=== PATIENT | male | born 1995 | race Asian ===

== ENCOUNTER 2017-10-07 14:12 | Inpatient (IN) | payer OTHER ==
[2017-10-07 15:23] LABS: Hematocrit 46 % (42-52); Hemoglobin 15.4 g/dl (14.0-18.0); Mean Corpuscular HGB Conc 34 g/dl (31-36); Mean Corpuscular Hemoglobin 28 pg (27-31); Mean Corpuscular Volume 84 fL (80-94); Mean Platelet Volume 8.9 um3 (7.4-10.4); Platelet Count 245 10^3/ul (150-450); Red Blood Count 5.44 10^6/ul (4.0-5.4); Red Cell Distribution Width 13 % (10.5-15); White Blood Count 17.1 10^3/ul (3.5-10.8)
[2017-10-07 15:33] LABS: INR 1.06 (0.77-1.02)
[2017-10-07 15:39] LABS: EGFR Non-African American 109.3 (>60)
[2017-10-07] MEDS ORDERED: Sulfamethox/Trimethoprim DS 800/160* TAB PO ONE (15:40)
[2017-10-07] MEDS ORDERED: Cephalexin CAP* 500 MG PO ONE (15:40)
[2017-10-07] MEDS ORDERED: traMADol TAB* 50 MG PO ONE (15:41)
[2017-10-07 15:44] LABS: ABS Basophils 0.1 10^3/ul (0-0.2); ABS Eosinophils 0.1 10^3/ul (0-0.6); ABS Lymphocytes 2.4 10^3/ul (1.0-4.8); ABS Monocytes 1.1 10^3/ul (0-0.8); ABS Neutrophils 13.4 10^3/ul (1.5-7.7)
[2017-10-07 15:50] LABS: Monocytes % 5 % (0-7)
[2017-10-07] MEDS ORDERED: Ibuprofen TAB* 600 MG PO ONE (16:04)
[2017-10-07] MEDS ORDERED: Clindamycin 900 MG IVPREMIX(* 900 MG/50 ML SDV IV ONE (16:10)
[2017-10-07 16:50] LABS: Urine Appearance Clear; Urine Blood Negative (Negative); Urine Color Yellow; Urine Ketones Negative (Negative); Urine Protein 1+(30 mg/dL) (Negative); Urine Specific Gravity 1.017 (1.010-1.030); Urine Urobilinogen Negative (Negative)
[2017-10-07] MEDS: NS 0.9% IV ONE ×4 (17:03→20:51)
[2017-10-07] MEDS ORDERED: Dextrose 50% Syringe 50 ML* 25 GM/50 ML SYRINGE IV PUSH PRN (18:43)
[2017-10-07] MEDS ORDERED: Insulin GLARGINE(*) 1 UNITS UNIT SUBCUT SCH ×2 (21:00)
--- NOTE | 2017-10-07 21:03 | HP ---
CC: Dr. Gonzalez; Providers at [facility] * HOSPITAL MEDICINE HISTORY AND PHYSICAL: DATE OF ADMISSION: 10/07/17 ATTENDING PHYSICIAN: Dr. Valentina Louise * (dictation provided by Cindy Joaquin NP ). CHIEF COMPLAINT: Buttock redness and swelling. HISTORY OF PRESENT ILLNESS: Mr. Garcia is a 21-year-old male with a past medical history of type 2 diabetes and hypertension, who presents today to the hospital with concern for persistent abscess to left buttock despite outpatient treatment with doxycycline. Mr. Garcia states that he first began to have some pain in the left side of his butt on last Sunday approximately 1 week ago,which was associated with redness. He tried to express what he suspected was an abscess, but was not very successful. He saw a nurse practitioner at [facility] on Sunday, who started him on doxycycline. The patient continued on this, but despite that had continued worsening edema and redness. He also notes that throughout this week, he has had low-grade fever especially at night. He denies any history of abscess in this location, but does report a history of a pilonidal cyst in the past. He has a history of diabetes diagnosed back in 2016, says his blood sugar has been running about 180s on his current regimen. In the emergency room, Mr. Garcia had the incision and drainage of the wound by the emergency room provider. He meets sepsis criteria with a temperature of 102.3, pulse rate 114, and white blood cell count of 17.1. His lactic acid is 2.7. Blood cultures have been sent. He has been given full 30 mL/kg IV fluids for a total of 4.5 L as well as antibiotics. Mr. Garcia states he feels better and is comfortable at this time. PAST MEDICAL HISTORY: 1. Type 2 diabetes, insulin dependent. 2. Hypertension. MEDICATIONS: As outpatient are: 1. Carvedilol CR 20 mg p.o. daily. 2. Chlorthalidone 25 mg p.o. daily. 3. Doxycycline 100 mg p.o. b.i.d. 4. Trulicity 0.25 mL subcutaneously weekly. 5. Glipizide 5 mg p.o. b.i.d. 6. Toujeo Solostar pen 40 units subcutaneously b.i.d. 7. Metformin ER 1000 mg p.o. b.i.d. 8. Pioglitazone 30 mg p.o. daily. 9. Lisinopril 40 mg p.o. daily. ALLERGIES: No known drug allergies. FAMILY HISTORY: The patient reports his mother and father are alive. He knows that his grandfather had diabetes that was type 2 and related to complications from that. His healthcare proxy will be his mom, although she does not live in the country. SOCIAL HISTORY: No reports of tobacco or drug use. The patient states that he drinks alcohol on a weekly basis but no more than once a week. He is a student at [employer] in the [employer]. REVIEW OF SYSTEMS: A 14-point review of systems was completed with Mr. Garcia and all those not mentioned above were negative. PHYSICAL EXAMINATION GENERAL: Mr. Garcia is lying in the bed. He is in no acute distress. VITAL SIGNS: Temperature 102.3, pulse rate 114, respiratory rate 18, O2 saturation 97% on room air, blood pressure 155/85. LUNGS: Clear to auscultation bilaterally with no accessory muscle use and good aeration. HEART: S1 and S2. No murmur, rub, or gallop. Rapid and regular. ABDOMEN: Soft and nontender with bowel sounds positive x4. EXTREMITIES: No cyanosis or edema. NEURO: He is alert, he is oriented x3. He moves all extremities equally. There is no facial asymmetry or focal weakness. Extraocular movements are intact. SKIN: Intact other than the abscess site, which has been I and D'd by the emergency room provider and is covered with a fresh dressing. There is some induration around the abscess site but very minimal erythema. LABORATORY DATA: Sodium 132, potassium 3.7, chloride 95, serum bicarbonate 25 , BUN 12, creatinine 0.88, glucose 206, lactic acid 2.7. WBC 17.1, hemoglobin 15.4, hematocrit 46, and platelet count 245. INR 1.06. Urine shows no evidence of infection. ASSESSMENT AND PLAN: Mr. Garcia is a 21-year-old male with a past medical history of insulin-dependent type 2 diabetes and hypertension, who presents today to the hospital with concern for a left buttock abscess that failed outpatient treatment with doxycycline. Our plans are for observation in the hospital for the followin. Sepsis secondary to abscess with history of diabetes: The patient's abscess is likely secondary to staphylococcus. Plan to treat with clindamycin to cover for MRSA He has sepsis and has received appropriate amount of fluids in the ED thus far. We will continue with normal saline at 125 mL per hour and adjust as needed based on clinical course. His lactic acid repeat is pending. His blood cultures have been sent. 2. Type 2 diabetes: The patient takes the equivalent of 40 units of Lantus twice a day. He will have a lispro sliding scale with a high-dose sliding scale. We will be holding all of his other home medications. 3. Hypertension: Plan to continue carvedilol though we do not have the 20 mg CR dose, so he will have 25 mg p.o. b.i.d. We will continue on the lisinopril but hold the chlorthalidone while he is febrile and needing IV fluids. 4. DVT prophylaxis. With early mobility. 5. Code status is full code. TIME SPENT: Approximately 60 minutes was spent in the admission of this patient , more than half time spent with the patient at the bedside reviewing the events leading up to this hospitalization, performing the physical examination, and reviewing my plan of care. CINDY JOAQUIN, LESTER [id number]/[facility] #: [id number] JACKIE
[2017-10-07] MEDS: Carvedilol TAB* 25 MG PO SCH (22:04)
[2017-10-07] MEDS: Insulin LISPRO* 1 UNITS UNIT SUBCUT SCH (22:05)
[2017-10-07] MEDS: Insulin GLARGINE(*) 1 UNITS UNIT SUBCUT SCH (22:05)
[2017-10-07] MEDS: NS 0.9% 1000 ML* 1,000 ML IV SCH (22:06)
[2017-10-08] MEDS: NS 0.9% 1000 ML* 1,000 ML IV SCH ×3 (01:24→22:17)
[2017-10-08] MEDS: Clindamycin 600 MG IVPREMIX(* 600 MG/50 ML SDV IV SCH ×2 (01:28→09:23)
[2017-10-08] MEDS: Acetaminophen TAB* 325 MG PO PRN ×3 (03:37→21:43)
[2017-10-08 07:29] LABS: ABS Basophils 0 10^3/ul (0-0.2); ABS Eosinophils 0.1 10^3/ul (0-0.6); ABS Lymphocytes 3.1 10^3/ul (1.0-4.8); ABS Monocytes 1.2 10^3/ul (0-0.8); ABS Neutrophils 11.4 10^3/ul (1.5-7.7); ABS Nucleated RBC 0 10^3/ul; Eosinophil % 0.6 % (0-6); Hematocrit 40 % (42-52); Hemoglobin 13.5 g/dl (14.0-18.0); Lymphocyte % 19.9 % (25-47); Mean Corpuscular HGB Conc 34 g/dl (31-36); Mean Corpuscular Hemoglobin 28 pg (27-31); Mean Corpuscular Volume 83 fL (80-94); Mean Platelet Volume 9.2 um3 (7.4-10.4); Nucleated Red Blood Cells % 0.1; Platelet Count 208 10^3/ul (150-450); Red Blood Count 4.82 10^6/ul (4.0-5.4); Red Cell Distribution Width 13 % (10.5-15); White Blood Count 15.8 10^3/ul (3.5-10.8)
[2017-10-08 07:43] LABS: EGFR Non-African American 129.5 (>60)
[2017-10-08] MEDS: Lisinopril TAB* 10 MG PO SCH (09:23)
[2017-10-08] MEDS: Insulin GLARGINE(*) 1 UNITS UNIT SUBCUT SCH ×2 (09:23→21:44)
[2017-10-08] MEDS: Carvedilol TAB* 25 MG PO SCH ×2 (09:23→21:44)
[2017-10-08] MEDS: Insulin LISPRO* 1 UNITS UNIT SUBCUT SCH ×4 (09:24→21:44)
[2017-10-08] MEDS ORDERED: Potassium Chlor TAB* 20 MEQ TAB.ER PO ONE (12:14)
[2017-10-08] MEDS ORDERED: Vancomycin(*) 2,000 MG in NS 0.9% 500 ML* 500 ML IVPB ONE (12:23)
[2017-10-08] MEDS ORDERED: Vancomycin per Pharmacy* NOTE FOLLOW UP PRN (15:04)
--- NOTE | 2017-10-08 19:34 | PN ---
Subjective Date of Service: 10/08/17 Interval History: Pain in area of abscess I&D Objective Active Medications: Acetaminophen (Tylenol Tab*) 650 mg PO Q6H PRN PRN Reason: PAIN Last Admin: 10/08/17 10:03 Dose: 650 mg Carvedilol (Coreg Tab*) 25 mg PO BID [facility] Last Admin: 10/08/17 09:23 Dose: 25 mg Dextrose (D50w Syringe 50 Ml*) 12.5 gm IV PUSH .FOR FS < 60 - SS PRN PRN Reason: FS < 60 Sodium Chloride (Ns 0.9% 1000 Ml*) 1,000 mls @ 125 mls/hr IV PER RATE [facility] Last Admin: 10/08/17 10:04 Dose: 125 mls/hr Vancomycin HCl 1,000 mg/ (Sodium Chloride) 250 mls @ 166.667 mls/hr IVPB Q8H [facility] Insulin Glargine (Lantus(*)) 40 units SUBCUT Q12H [facility] Last Admin: 10/08/17 09:23 Dose: 40 units Insulin Human Lispro (Humalog*) 0 units SUBCUT ACHS [facility] PRN Reason: Protocol Last Admin: 10/08/17 16:35 Dose: 3 units Lisinopril (Prinivil Tab*) 40 mg PO DAILY [facility] Last Admin: 10/08/17 09:23 Dose: 40 mg Pharmacy Consult (Vancomycin Per Pharmacy*) 1 note FOLLOW UP . PRN PRN Reason: PER PROTOCOL Pharmacy Profile Note (Vancomycin Trough Check) 1 note FOLLOW UP 0730 ONE Stop: 10/10/17 07:31 Oxygen Devices in Use Now: None Appearance: NAD Eyes: No Scleral Icterus Ears/Nose/Mouth/Throat: NL Teeth, Lips, Gums, Clear Oropharnyx Neck: NL Appearance and Movements; NL JVP, Trachea Midline Respiratory: Symmetrical Chest Expansion and Respiratory Effort, Clear to Auscultation Cardiovascular: NL Sounds; No Murmurs; No JVD, RRR Abdominal: NL Sounds; No Tenderness; No Distention Lymphatic: No Cervical Adenopathy Skin: - - right buttuck with area of tense erythema Neurological: Alert and Oriented x 3 Result Diagrams: 10/08/17 06:23 10/08/17 06:23 Assess/Plan/Problems-Billing Assessment: 21 M h/o DM2 and sepsis from right buttock abscess - Patient Problems (1) Sepsis Comment: WBC elevated and remained tachycardic broaden to vanco narrow when cultures negative (2) Cellulitis and abscess of buttock Comment: vanco as above (3) Diabetes Comment: lispro SS
[2017-10-08] MEDS: Vancomycin(*) 1,000 MG in NS 0.9% 250 ML* 250 ML IVPB SCH (23:40)
[2017-10-09 05:53] LABS: ABS Basophils 0.1 10^3/ul (0-0.2); ABS Eosinophils 0.2 10^3/ul (0-0.6); ABS Lymphocytes 3.1 10^3/ul (1.0-4.8); ABS Monocytes 1.4 10^3/ul (0-0.8); ABS Neutrophils 10.5 10^3/ul (1.5-7.7); ABS Nucleated RBC 0 10^3/ul; Eosinophil % 1.1 % (0-6); Hematocrit 41 % (42-52); Hemoglobin 13.5 g/dl (14.0-18.0); Mean Corpuscular HGB Conc 33 g/dl (31-36); Mean Corpuscular Hemoglobin 28 pg (27-31); Mean Corpuscular Volume 84 fL (80-94); Mean Platelet Volume 8.6 um3 (7.4-10.4); Nucleated Red Blood Cells % 0; Platelet Count 223 10^3/ul (150-450); Red Blood Count 4.86 10^6/ul (4.0-5.4); Red Cell Distribution Width 13 % (10.5-15); White Blood Count 15.2 10^3/ul (3.5-10.8)
[2017-10-09] MEDS: Vancomycin(*) 1,000 MG in NS 0.9% 250 ML* 250 ML IVPB SCH ×3 (07:19→23:59)
[2017-10-09] MEDS: NS 0.9% 1000 ML* 1,000 ML IV SCH ×2 (07:19→16:49)
[2017-10-09] MEDS: Insulin LISPRO* 1 UNITS UNIT SUBCUT SCH ×4 (09:32→20:42)
[2017-10-09] MEDS: Insulin GLARGINE(*) 1 UNITS UNIT SUBCUT SCH ×2 (09:33→21:12)
[2017-10-09] MEDS: Lisinopril TAB* 10 MG PO SCH (09:33)
[2017-10-09] MEDS: Carvedilol TAB* 25 MG PO SCH ×2 (09:33→21:12)
--- NOTE | 2017-10-09 09:43 | RAD ---
HISTORY: Status post incision and drainage of left buttock abscess COMPARISONS: None TECHNIQUE: Multiple transverse and longitudinal ultrasound images were obtained of the area of clinical abnormality using grayscale and color Doppler imaging. FINDINGS: In the area of clinical abnormality of the left buttocks, there is a heterogeneously hypoechoic fluid collection measuring approximately 2.9 x 0.8 x 1 cm in size. There is no hypervascularity. There is inflammatory change of the surrounding fat. IMPRESSION: THERE IS A 2.9 CM LOCULATED FLUID COLLECTION IN THE AREA OF CLINICAL ABNORMALITY. WHILE THERE IS NO HYPERVASCULARITY, GIVEN THE INFLAMMATORY CHANGE OF THE ADJACENT FAT AND THE CLINICAL HISTORY, THIS LIKELY REPRESENTS THE RESIDUAL/RECURRENT ABSCESS.
[2017-10-09] MEDS ORDERED: Lidocaine 1% MPF wEPI 200,000* 30 ML SDV INJ ONE (13:36)
[2017-10-09] MEDS ORDERED: Lidocaine 2.5%/Prilocain 2.5%* 5 GM TUBE TOPICAL ONE (13:44)
[2017-10-09] MEDS ORDERED: Ibuprofen TAB* 600 MG PO PRN (15:50)
[2017-10-09] MEDS ORDERED: oxyCODONE TAB* 5 MG TAB PO PRN (15:50)
--- NOTE | 2017-10-09 17:37 | PN ---
Subjective Date of Service: 10/09/17 Interval History: Pain in buttocks continues anxious about school work OOB and walking during the day yesterday and today Objective Active Medications: Acetaminophen (Tylenol Tab*) 650 mg PO Q6H PRN PRN Reason: PAIN Last Admin: 10/08/17 21:43 Dose: 650 mg Carvedilol (Coreg Tab*) 25 mg PO BID [facility] Last Admin: 10/09/17 09:33 Dose: 25 mg Dextrose (D50w Syringe 50 Ml*) 12.5 gm IV PUSH .FOR FS < 60 - SS PRN PRN Reason: FS < 60 Sodium Chloride (Ns 0.9% 1000 Ml*) 1,000 mls @ 125 mls/hr IV PER RATE [facility] Last Admin: 10/09/17 16:49 Dose: 125 mls/hr Vancomycin HCl 1,000 mg/ (Sodium Chloride) 250 mls @ 166.667 mls/hr IVPB Q8H [facility] Last Admin: 10/09/17 16:49 Dose: 166.667 mls/hr Ibuprofen (Motrin Tab*) 600 mg PO Q8H PRN PRN Reason: PAIN Last Admin: 10/09/17 16:49 Dose: 600 mg Insulin Glargine (Lantus(*)) 40 units SUBCUT Q12H [facility] Last Admin: 10/09/17 09:33 Dose: 40 units Insulin Human Lispro (Humalog*) 0 units SUBCUT ACHS [facility] PRN Reason: Protocol Last Admin: 10/09/17 17:31 Dose: 2 units Lisinopril (Prinivil Tab*) 40 mg PO DAILY [facility] Last Admin: 10/09/17 09:33 Dose: 40 mg Oxycodone HCl (Roxycodone Tab*) 5 mg PO Q6H PRN PRN Reason: PAIN Pharmacy Consult (Vancomycin Per Pharmacy*) 1 note FOLLOW UP . PRN PRN Reason: PER PROTOCOL Pharmacy Profile Note (Vancomycin Trough Check) 1 note FOLLOW UP 729 ONE Stop: 10/10/17 07:31 Oxygen Devices in Use Now: None Appearance: NAD Eyes: No Scleral Icterus, PERRLA Ears/Nose/Mouth/Throat: NL Teeth, Lips, Gums, Clear Oropharnyx, Mucous Membranes Moist Neck: NL Appearance and Movements; NL JVP, Trachea Midline Respiratory: Symmetrical Chest Expansion and Respiratory Effort, Clear to Auscultation Cardiovascular: NL Sounds; No Murmurs; No JVD, RRR Abdominal: NL Sounds; No Tenderness; No Distention, No Hepatosplenomegaly Lymphatic: No Cervical Adenopathy Extremities: No Edema Skin: - - left buttocks with area of induration and surrounding erythema Neurological: Alert and Oriented x 3 Result Diagrams: 10/09/17 05:40 10/09/17 05:40 Microbiology and Other Data: Microbiology 10/09/17 15:37 Gram Stain - Final Buttock Assess/Plan/Problems-Billing Assessment: 21 M h/o DM2 and sepsis from left buttock abscess - Patient Problems (1) Sepsis Comment: imaged with US today / continued tachycardia and elevated WBC I&D by Dr. ribera at bedside 10/09 culture pending continue vancomycin and IV fluids (2) Cellulitis and abscess of buttock Comment: vanco as above (3) Diabetes Comment: lispro SS
--- NOTE | 2017-10-09 23:01 | OP ---
CC: [facility] * DATE OF OPERATION: 10/09/17 - ROOM #412 DATE OF : 95 SURGEON: Stewart Benítez MD ANESTHESIA: 1% lidocaine with epinephrine and EMLA cream. PRE-OP DIAGNOSIS: Left buttock abscess. POST-OP DIAGNOSIS: Left buttock abscess. OPERATIVE PROCEDURE: Incision and drainage of left buttock abscess. DRAINS: None. COMPLICATIONS: None. DESCRIPTION OF PROCEDURE: The patient was positioned prone on his bed. The site that been previously marked to which the EMLA cream had been applied was prepped with chlorhexidine and sterilely draped. Time-out was performed. Local anesthetic was infiltrated into the skin and soft tissue and a stab wound incision was created with the 11 blade scalpel. Then an 18-gauge needle was used to aspirate to a depth of about 2 cm and pus was aspirated and then this was submitted to microbiology. The incision was enlarged in a cruciate fashion for length of about 2 to 2.5 cm and then curved clamp was used to enter this space and open widely to what appeared to be a cavity. There was no pouring out of pus and this cavity was explored in all directions. The site was irrigated with 50 mL of saline, and a half inch gauze pack was left as a wick, and 4x4s were applied with tape. The patient tolerated the procedure well. [id number]/[facility] #: [id number] MTDD
[2017-10-10] MEDS ORDERED: Vancomycin Trough Check NOTE FOLLOW UP ONE (07:30)
[2017-10-10 07:34] LABS: ABS Basophils 0.1 10^3/ul (0-0.2); ABS Eosinophils 0.3 10^3/ul (0-0.6); ABS Neutrophils 7.8 10^3/ul (1.5-7.7); ABS Nucleated RBC 0 10^3/ul; Eosinophil % 2.1 % (0-6); Hematocrit 41 % (42-52); Hemoglobin 13.7 g/dl (14.0-18.0); Lymphocyte % 24.7 % (25-47); Mean Corpuscular HGB Conc 33 g/dl (31-36); Mean Corpuscular Hemoglobin 28 pg (27-31); Mean Corpuscular Volume 84 fL (80-94); Mean Platelet Volume 9.2 um3 (7.4-10.4); Nucleated Red Blood Cells % 0; Platelet Count 238 10^3/ul (150-450); Red Blood Count 4.87 10^6/ul (4.0-5.4); Red Cell Distribution Width 13 % (10.5-15); White Blood Count 12.2 10^3/ul (3.5-10.8)
[2017-10-10] MEDS: Insulin LISPRO* 1 UNITS UNIT SUBCUT SCH ×2 (09:19→12:39)
[2017-10-10] MEDS: Insulin GLARGINE(*) 1 UNITS UNIT SUBCUT SCH (09:19)
[2017-10-10] MEDS: Vancomycin(*) 1,000 MG in NS 0.9% 250 ML* 250 ML IVPB SCH (09:19)
[2017-10-10] MEDS: Carvedilol TAB* 25 MG PO SCH (09:19)
[2017-10-10] MEDS: Lisinopril TAB* 10 MG PO SCH (09:19)
[2017-10-10 12:04] VITALS: BP 128/62
--- NOTE | 2017-10-10 16:19 | DS ---
DISCHARGE SUMMARY: DATE OF ADMISSION: 10/07/17 DATE OF DISCHARGE: 10/10/17 PRIMARY CARE PROVIDER: [facility]. PRIMARY DIAGNOSES: 1. Left buttocks abscess, status post incision and drainage. 2. Sepsis secondary to abscess. 3. Insulin-dependent type 2 diabetes mellitus. 4. Hypertension. 5. Morbid obesity, BMI in the hospital 41. MEDICATIONS ON DISCHARGE: 1. Augmentin 875 mg twice daily for 9 additional days. 2. Trulicity 0.25 mg subcutaneously weekly. 3. Insulin glargine 40 units twice daily. 4. Actos 30 mg daily. 5. Metformin ER 1000 mg twice daily. 6. Lisinopril 40 mg daily. 7. Glipizide 5 mg twice daily. 8. Chlorthalidone 25 mg daily. 9. Carvedilol 20 mg daily. 10. Oxycodone 5 mg every 6 hours as needed for pain, dispensed 10 tabs. 11. Ibuprofen 600 mg every 8 hours as needed. 12. Acetaminophen 650 mg every 6 hours as needed for pain. PERTINENT LABORATORY DATA: White blood cell count on presentation 17.1, decreased to 12.2. PERTINENT MICROBIOLOGY: MRSA, MSSA negative by PCR from I and D site. Wound culture pending. PERTINENT IMAGING STUDIES: Soft tissue ultrasound of left buttocks area, 2.9 cm loculated fluid collection in the area of clinical abnormality. HISTORY OF PRESENT ILLNESS AND HOSPITAL COURSE: This is a 21-year-old man with past medical history as outlined in the history of present illness on day of admission including diabetes and hypertension, presented with pain in the area of the left buttocks, underwent an I and D of the abscess in the emergency room ; however, continued to have leukocytosis and tachycardia during the course of the hospital stay for which a repeat was performed indicating continued loculated collection consistent with abscess. An I and D was performed at [facility] by Dr. Benítez with expression of pus. It was packed for 24 hours. Patient's tachycardia resolved, his leukocytosis improved. He was maintained on vancomycin during the course of the hospital stay, which will be narrowed to Augmentin now that the PCR has been negative for MRSA from the buttocks incision and drainage. He is felt improved, although his mat machine tender in the area of the left buttocks around the I and D. I discussed with Dr. Benítez. He does not need to have the wound packed, although should apply compress 3 times daily and maintain clean and dry dressing. This has been discussed with the patient prior to discharge. He is to follow up with [facility] on Sunday as discussed at length with the patient. He acknowledges understanding. At followup please; 1. Please do a followup of final wound culture results obtained on 10/09/17. 2. Can consider repeat CBC to evaluate for resolution of leukocytosis should his area of surrounding cellulitis not improve. 3. No other specific labs or vitals that need followup. Reason for return to the hospital include, but not limited to recurrent or worsening symptoms including worsening pain, fevers, chills, night sweats, failure for the area of erythema or pain or induration to improve, chest pain, shortness of breath, nausea, vomiting or inability to obtain or tolerate medications discussed at length with the patient. He acknowledged understanding. TIME SPENT: Greater than 60 minutes were spent on the discharge of this patient , greater than half was spent face to face with the patient. [id number]/[facility] #: [id number] JACKIE
== END 2017-10-10 13:30 | disposition home or self-care (01) | DRG 854 ==
LOC: ED 14:12 → MEDTELE 20:05 → OBSVTOIN 10-08 15:23 → MED 10-09 18:43
PROVIDERS: ADMIT Internal Medicine; ATTEND Internal Medicine
PROC: 0J990ZZ Drainage of Buttock Subcutaneous Tissue and Fascia, Open Approach (ICD-10-PCS; principal; 2017-10-09)
DX: A41.9 Sepsis, unspecified organism (principal); L02.31 Cutaneous abscess of buttock; Z68.41 Body mass index [BMI] 40.0-44.9, adult; E11.9 Type 2 diabetes mellitus without complications; I10 Essential (primary) hypertension; E66.01 Morbid (severe) obesity due to excess calories; B95.8 Unspecified staphylococcus as the cause of diseases classified elsewhere; Z79.84 Long term (current) use of oral hypoglycemic drugs; Z79.4 Long term (current) use of insulin; Z79.899 Other long term (current) drug therapy; Z83.3 Family history of diabetes mellitus
CPT/HCPCS: 36415; 80048; 80053; 80202; 81003; 81015; 83605; 85025; 85060; 85610; 85730; 87040; 87070; 87076; 87205; 87640; 87641; 99284; A9270-GY; J2001; J3370